=== PATIENT | female | born 1945 | race Caucasian/White ===

== ENCOUNTER → 2016-08-17 | Day surgery (SDC) | payer OTHER ==
[2016-08-17] VITALS (11 sets, daily range): BP systolic 133–174; BP diastolic 76–101
[~2016-08-17] VITALS: Ht 170.2 cm; Wt 93.0 kg
[~2016-08-17] MED LIST: ASCORBIC ACID500 M4 ORAL; ATENOLOL25 MG ORAL; ATORVASTATIN CA20 MG ORAL; BSS 15ml BTL ONE; BSS 500ml btl ONE; CALCIUM500 M3 PO; Dexamethasone 4mg/ml vial ONE; EPINEPHrine 1mg/1ml Amp ONE; LR 1000ml ONE; Labetalol 5mg/ml 20ml vial IV PRN; Lidocaine 1% MPF 10mg/ml 5ml ONE; Midazolam 2mg/2ml Inj ONE; NS Irrig 1000ml ONE; PATADAY2.5 ML BOTH EYES; PATANOL1 DROP BOTH EYES; PREMPHASE 0.621 EACH PO; Povidone-Iodine 5% opth solution ONE; Sodium Hyaluronate 14 mg/ml 0.85ml ONE; Sterile Water Irrig 1000ml IRRIG ONE; fentaNYL 100 mcg/2 mL IV ONE
--- NOTE | 2016-08-17 07:42 | Pre-Procedure Note/Attestation ---
Pre-Procedure Note/Attestation Complete Prior to Procedure Planned Procedure: right Procedure Narrative: cataract extraction with implant right eye Indications for Procedure Pre-Operative Diagnosis: cataract right eye Attestation I attest that I discussed the nature of the procedure; its benefits; risks and complications; and alternatives (and the risks and benefits of such alternatives ), prior to the procedure, with the patient (or the patient's legal business process representative). I attest that, if there was a reasonable possibility of needing a blood transfusion, the patient (or the patient's legal business process representative) was given the [facility] standardized written summary, pursuant to the [place] Blood Safety Act ([place] Health and Safety Code # 1645, as amended). I attest that I re-evaluated the patient just prior to the surgery and that there has been no change in the patient's H&P, except as documented below: JOAQUINA DEL CID Aug 17, 2016 07:42
[2016-08-17] MEDS: Tropicamide 1% Opth Soln RIGHT EYE SCH ×3 (08:53→09:15)
[2016-08-17] MEDS: Phenylephrine 2.5% Op Soln RIGHT EYE SCH ×3 (08:54→09:15)
[2016-08-17] MEDS: Gatifloxacin Opth Solution 0.5% RIGHT EYE SCH ×3 (08:55→09:15)
[2016-08-17] MEDS: Diclofenac Sod 0.1% Op Soln RIGHT EYE SCH ×3 (08:55→09:16)
[2016-08-17] MEDS: Tobradex Opth Susp 2.5ml RIGHT EYE SCH ×3 (08:56→09:16)
[2016-08-17] MEDS: Akten 3.5% 1ml Btl RIGHT EYE SCH ×3 (08:57→09:17)
--- NOTE | 2016-08-17 10:21 | Brief Operative Note ---
Immediate Post Operative Note Operative Note Pre-op Diagnosis: cataract right eye Procedure: phacoemulsification of cataract with implant right eye Post-op Diagnosis: same as pre-op Surgeon: joaquina ruiz [employer] Affixer: none Anesthesiologist: franc young crna Anesthesia: MAC Specimen: none Complications: none Condition: stable Estimated Blood Loss: none Drains: none Implant(s) used?: Yes JOAQUINA RUIZ Aug 17, 2016 10:21
--- NOTE | 2016-08-17 10:27 | Immediate Post-Op Evaluation ---
Immediate Post-Op Evalulation Immediate Post-Op Evalulation Procedure: cataract extraction left eye IOL Date of Evaluation: Aug 17, 2016 Time of Evaluation: 10:27 IV Fluids: 200 Blood Pressure Systolic: 154 Blood Pressure Diastolic: 93 Pulse Rate: 65 Respiratory Rate: 14 O2 Sat by Pulse Oximetry: 98 Temperature (Fahrenheit): 97.3 Nausea: No Vomiting: No Complications none Patient Status: awake, reacts, patent Hydration Status: adequate Drug: none ELMIRA ROMERO CRNA Aug 17, 2016 10:27
--- NOTE | 2016-08-17 10:29 | Anethesia Preoperative Eval ---
Anesthesia Pre-op PMH/ROS General Date of Evaluation: Aug 17, 2016 Time of Evaluation: 09:40 Anesthesiologist: hector ASA Score: ASA 2 Mallampati Score Class I : Soft palate, uvula, fauces, pillars visible Class II: Soft palate, uvula, fauces visible Class III: Soft palate, base of uvula visible Class IV: Only hard plate visible Mallampati Classification: Class II Surgeon: sara Diagnosis: cataract Surgical Procedure: cataract surgery right eye Anesthesia History: none Family History: no anesthesia problems Allergies: Coded Allergies: PENICILLINS (Verified Allergy, Intermediate, HIVES, 08/16/16) Medications: see eMAR Past Medical History Cardiovascular: Reports: HTN Pulmonary: Denies: COPD, [place], asthma, other Gastrointestinal/Genitourinary: Denies: CRI, ESRD, GERD, other Neurologic/Psychiatric: Reports: depression/anxiety Endocrine: Denies: DM, hypothyroidism, other, steroids HEENT: Reports: cataract (L) Hematology/Immune: Denies: DVT, anemia, bleeding disorder, other Musculoskeletal/Integumentary: Denies: DDD, DJD, OA, RA, edema, other PSxH Narrative: unknown Anesthesia Pre-op Phys. Exam Physician Exam Last Vital Signs Date Time Temp Pulse Resp B/P Pulse Ox O2 Delivery O2 Flow Rate FiO2 08/17/16 10:25 68 14 171/101 98 Room Air 08/17/16 10:20 97.4 Constitutional: NAD Neurologic: CN 2-12 intact Cardiovascular: RRR Respiratory: CTA Gastrointestinal: S/NT/ND Airway Exam Mallampati Classification 2 Mallampati Score: Class II MO: full Neck: thin ROM: full Dentures: no lower, no upper Anesthesia Pre-op A/P Studies Pre-op Studies: EKG - sr Risk Assessment & Plan Plan: mac Status Change Before Surgery: No Pre-Antibiotics Drug: none ELMIRA ROMERO CRNA Aug 17, 2016 10:29
--- NOTE | 2016-08-17 10:40 | 48 Hour Post Anesthesia Eval ---
Post Anesthesia Evaluation Procedure: cataract extraction left eye IOL Date of Evaluation: Aug 17, 2016 Time of Evaluation: 10:38 Blood Pressure Systolic: 144 0: 84 Pulse Rate: 63 Respiratory Rate: 14 O2 Sat by Pulse Oximetry: 98 Airway: patent Nausea: No Vomiting: No Hydration Status: adequate Cardiopulmonary Status: normal Mental Status/LOC: patient returned to baseline Post-Anesthesia Complications: none Follow-up care needed: N/A ELMIRA ROMERO CRNA Aug 17, 2016 10:40
--- NOTE | 2016-08-17 17:38 | Operative Note - Dictated ---
DATE OF OPERATION: 08/17/2016 PREOPERATIVE DIAGNOSIS: Cataract, right eye. POSTOPERATIVE DIAGNOSIS: Cataract, right eye. PROCEDURE: Phacoemulsification of the cataract, right eye, with placement of posterior chamber intraocular lens. SURGEON: Mayank Russell M.D. ([facility] [place] POLICY CHANGE CLERKS SUPERVISOR: None. ANESTHESIA: MAC/topical. ANESTHESIOLOGIST: Leigh Eng C.R.N.A. INDICATION FOR PROCEDURE: Hand motion vision, right eye. DESCRIPTION OF FINDINGS: Dense nuclear sclerotic and posterior subcapsular cataract, right eye. DESCRIPTION OF PROCEDURE: The patient received a topical anesthetic block consisting of 3.5% Akten eye drops. The eye was then prepped and draped in the usual manner. A lid speculum was placed. An operating Zeiss microscope was positioned. A temporal corneal groove was made with the vijaya blade. A SuperSharp blade made a stab incision at the 12 o'clock position. A 0.1 mL of 1% nonpreserved intracameral lidocaine was injected. Healon was instilled into the anterior chamber and a 2.5-2.8 mm trapezoidal vijaya blade was used to complete the temporal corneal wound. A cystitome was used to create an anterior capsular flap. Utrata forceps were used to complete the capsulorrhexis. BSS on a cannula was used to hydrodissect the nucleus. The lens nucleus phacoemulsified in a phaco-fracture technique. Remaining cortical material was removed with the I/A and the posterior capsule was polished with the I/A on Cap Vac. Healon was instilled in the capsular bag and anterior chamber, and an Schumacher foldable one-piece posterior intraocular lens model [id number], power 15.0 diopter, serial #[id number] was placed in the injector. The lens was put into the capsular bag. The I/A tip was used to remove the Healon and position the lens. The wound edge was hydrated with BSS on a blunt-tipped cannula. The wound was checked and found to be watertight. The lid speculum was removed and a drop of TobraDex and Zymaxid was placed. A clear plastic shield was taped over the eye. The patient tolerated the procedure well and left the operating room in good condition. Mayank Russell M.D. ([facility]) DR: JAQUI JOB#: [id number] CC: Shayna Falcon M.D.
== END | disposition home or self-care (01) ==
LOC: SUR 07:22
DX: H25.11 Age-related nuclear cataract, right eye (principal); H25.041 Posterior subcapsular polar age-related cataract, right eye; I10 Essential (primary) hypertension; E78.00 Pure hypercholesterolemia, unspecified; M10.9 Gout, unspecified; F32.9 Major depressive disorder, single episode, unspecified; F41.9 Anxiety disorder, unspecified; Z88.0 Allergy status to penicillin; Z90.710 Acquired absence of both cervix and uterus
CPT/HCPCS: 66984; J0171; J1100; J2250; J3010; J7120; V2632; 94003; 94150